=== PATIENT | male | born 1960 | race Caucasian/White ===

== ENCOUNTER 2025-05-25 17:13 | Inpatient (IN) | payer OTHER, SELFPAY ==
[2025-05-25] VITALS (11 sets, daily range): BP systolic 19–147; BP diastolic 66–89; BMI 25.4; BMI 25.1
--- NOTE | 2025-05-25 13:29 | ED.GENMED ---
History of Present Illness
General
Chief Complaint: Anal/Rectal Problem
Source: patient
Exam Limitations: none
Time Seen by Provider: 05/25/25 13:28
Nursing documentation reviewed up to this point in time: agreed with
History of Present Illness
History of Present Illness:
Note:
CHIEF COMPLAINT(S)
Foreign body insertion in the rectum.
HISTORY OF PRESENT ILLNESS
The patient is a 65-year-old male with a history of self-insertion of a razor blade into his rectum approximately one hour ago. He describes the blade as a flat, replaceable type, commonly found in box cutters. The patient attempted to retrieve it
without success. He reports experiencing pain localized to the rectal area. He denies any bleeding and confirms he inserted the blade himself. He has a history of a similar incident in 2021, where gastroenterology intervention was required for
removal via endoscopy.
The patient admits to current homelessness, staying at a half-way for two days. He denies current alcohol or substance use.
PAST MEDICAL AND SURGICAL HISTORY
The patient has a history of supraventricular tachycardia (SVT) treated with catheter ablation four years ago. Post-procedure, he was placed on Cardizem (diltiazem) and is not on any blood thinners. Additionally, he has undergone a temporary
diverting colostomy and subsequent reversal.
SOCIAL DETERMINANTS AFFECTING HEALTH
The patient is currently homeless and staying at a half-way. He discloses past occurrences of similar behavior related to foreign body insertion.
MEDICATIONS
The patient is currently taking Cardizem (diltiazem) for SVT management.
PHYSICAL EXAM
- General: Cooperative, alert, and oriented male.
- Head, Eyes, Ears, Nose, and Throat: Pupils equal and reactive to light.
- Cardiovascular: Regular rhythm, S1 and S2 heard without S3 or S4.
- Pulmonary: Clear bilateral lung sounds without distress.
- Abdomen: Soft, non-tender, non-distended.
- Rectal: No active bleeding observed; digital exam deferred due to the presence of a razor blade.
- Skin: Multiple self-inflicted cutting scars observed on upper extremities.
- Neurologic: Intact cranial nerve examination, no gross motor or sensory deficits.
PROBLEM LIST
Acute:
- Foreign body (razor blade) insertion in the rectum
- Rectal pain
Chronic:
- Supraventricular tachycardia (post-ablation)
PLAN
- The patient may require surgical or gastroenterological intervention for secure removal of the razor blade if deemed necessary.
- Continuation of Cardizem as indicated for SVT management.
- Address the patients homelessness and explore social media developer for housing assistance and psychological evaluation.
DIFFERENTIAL DIAGNOSIS
The Differential Diagnosis includes, in no particular order and is not limited to:
- Self-harm behavior
- Foreign body rectal insertion
- Complications from foreign body insertion such as infection or perforation
- Rectal trauma
- Hemorrhoids
- Colorectal mass
- Rectal abscess
- Diverticular disease
- Anorectal malformation
- Proctitis
CARE-UPDATE
05/25/25 - 19:45
Coordinated with gastroenterology and colorectal surgery regarding intervention. Patient was taken to the operating room and will be admitted by the hospitalist team. Psychiatry and crisis intervention teams are scheduled to evaluate the patient.
Disposition:
SUMMARY OF ENCOUNTER
The patient, a 65-year-old homeless male, presented to the emergency department with a self-insertion of a razor blade into his rectum about one hour prior. He reported pain but no bleeding. Historically, the patient had a similar incident in 2021,
necessitating removal via endoscopy. His medical history includes supraventricular tachycardia post-ablation with ongoing treatment with diltiazem. The management plan involved coordination with gastroenterology and colorectal surgery for
appropriate intervention to remove the foreign body.
DISPOSITION
Admit to the hospitalist.
ASSESSMENT
The patient presented with a rectal foreign body insertion and associated pain, self-harm behavior due to past incidences, and history of supraventricular tachycardia.
MANAGEMENT OF THE PATIENTS CARE WAS DISCUSSED WITH
Consultations were held with gastroenterology and colorectal surgery teams to address the intervention for razor blade removal. Psychiatry and crisis intervention teams are scheduled for patient evaluation post-procedure.
PLAN
The patient will require surgical or gastroenterological intervention for the secure removal of the razor blade. Continued management of supraventricular tachycardia includes the ongoing administration of diltiazem. Additionally, social media developer
will be engaged to provide housing assistance and psychological evaluation due to the patients homelessness and self-harm behavior.
MEDICAL DECISION MAKING
Number and Complexity of Problems Addressed: Chronic conditions affecting care include supraventricular tachycardia. Differential diagnoses considered were self-harm behavior, foreign body rectal insertion, and possible complications from insertion
such as infection, rectal trauma, or perforation.
Category 3:
Discussion of management with gastroenterology and colorectal surgery regarding intervention, as well as anticipated evaluation with psychiatry and crisis intervention teams.
Care significantly affected by Social Determinants of Health: The patients current homelessness situation and past occurrences indicate a pattern of behavior related to mental health needs and socio-economic challenges.
DIAGNOSIS
- Rectal foreign body (T18.5XXA)
- Self-harm behavior (Z91.5)
Past History
Past History
ED Past Medical History: CAD, HTN, Psychiatric (Bipolar disorder, PTSD, self mutilation, suicidal ideation), Other (Zenker's diverticula status post PEG reversal) and Other (SVT)
ED Past Surgical History: Other (21 bowel surgeries including PEG tube with reversal)
Social History
Tobacco: Smoker
Alcohol: None
Drug: None
Personal: Single
Living: homeless
Employment: Not employed
Family History
Family History: Other (Noncontributory)
Phy Exam
Physical Exam
Physical Exam:
.
Course
Orders/Labs/Results
Orders:
Orders
05/25/25 13:38
IV Insert/Care/Rem.- Treatment PRN
CR Abdomen - 1 View Urgent
Reason For Exam: inserted razor blade in rectum
05/25/25 13:50
Type+Screen Urgent
Complete Blood Count/With Diff Urgent
05/25/25 14:30
HYDROmorphone [Dilaudid] 0.5 mg IV NOW STA
Ondansetron Injectable [Zofran] 4 mg IV NOW STA
05/25/25 14:32
HYDROmorphone [Dilaudid] 0.5 mg IV NOW STA
Ondansetron Injectable [Zofran] 4 mg IV NOW STA
05/25/25 14:57
Comprehensive Metabolic Panel Urgent
05/25/25 Dinner
Regular
05/25/25 15:47
HYDROmorphone [Dilaudid] 0.5 mg IV NOW STA
05/25/25 16:13
Propofol [Diprivan] 40 ml .ROUTE .STK-MED
05/25/25 16:55
Admit/Transfer Patient As Directed
Co-Sign Provider:
Level of Care: Inpatient admission
Assign to:: Telemetry
Physician / Group: Hospitalist
Diagnosis: Foreign body insertion into rectum
Reason for Telemetry: Arrhythmia
Date to Stop Telemetry: 05/28/25
Time to Stop Telemetry: 11:00
Reason for Hospitalization: as above
Expected length of stay greater than two midnights?: Yes
ELOS- Estimated Length of Stay in days: 3
I certify the patient meets the requirements for IP care: Yes
05/25/25 16:56
Code Status As Directed
Resuscitation Status: Full Code
05/25/25 17:13
PSYCHIATRY CONSULT Routine
Consulting Provider: Michelle Garcia
Was physician already notified: Yes
05/25/25 17:43
Docusate W/Senna [Senokot-S] 1 tablet PO BIDPRN PRN
Polyethylene Glycol Powder [Miralax] 17 grams PO DAILYPRN PRN
05/25/25 17:43
1:1 Observation - Suicide/ Violent Behavior As Directed
Activity As Directed
Activity Level: As Tolerated
Vital Signs As Directed
Frequency: Per unit guidelines
DX Deep Vein Thrombosis Video Routine
05/25/25 18:00
Enoxaparin Sodium [Lovenox] 40 mg SC QPM
05/26/25 06:00
Basic Metabolic Panel IN AM
Complete Blood Count/With Diff IN AM
05/26/25 08:00
Diltiazem Extended Release [Cardizem Cd] 120 mg PO DAILY
05/28/25 11:00
DC Protocol for Telemetry ONCE
Abnormal Lab Results
05/25/25 05/25/25
13:50 14:57
RBC 4.02 L 10^6/uL
(4.70-6.10)
Hgb 12.7 L g/dL
(13.0-18.0)
Hct 36.8 L %
(39.0-52.0)
MCH 31.6 H pg
(27.0-31.0)
Chloride 109 H mmol/L
(98-107)
Total Protein 6.0 L g/dl
(6.3-8.2)
05/25/25 13:50
05/25/25 14:57
Vital Signs
Initial and Last Documented VS:
Initial Vital Signs
BP
105/74
05/25/25 13:27
Last Documented Vital Signs
Temp Pulse Resp BP Pulse Ox
97.9 F 74 16 121/81 100
05/25/25 19:00 05/25/25 19:00 05/25/25 19:00 05/25/25 19:00 05/25/25 19:00
*Radiology
Radiology exam reviewed: preliminary read by ED provider (Abdominal x-ray shows rectal foreign body)
*Pulse Oximetry
Patient hypoxic: no
*Critical Care Note
Total Time (30-74mins, 75-104mins- exclusive of procedures): Not Applicable
ED Attending Note
-
Portions of this chart may have been created with voice recognition software.� Occasional wrong word or��sound alike� substitutions may have occurred due to the inherent limitations of voice recognition software.
Discharge Plan
Departure
Patient Disposition: Admit
Date of Disposition: 05/25/25
Time of Disposition: 15:41
Admit to: Med/Surg
Presentation/result/management discussed w/ accepting MD/DO: Hospitalist
Patient with high blood pressure during this ER visit?: No
Condition: Good
Discharge Problem:
Foreign body anus/rectum, Suicidal ideation
Interventions
Interventions:
*Risk Screen - Suicide Last Done: 05/25/25 19:36
*General Assessment Last Done: 05/25/25 13:39
*Neglect/Abuse Screening Last Done: 05/25/25 13:39
*ED- Fall Risk Assessment Last Done: 05/25/25 13:39
*ED COVID-19 Vaccine History Last Done: 05/25/25 13:39
*Nursing Disposition Last Done: 05/25/25 16:34
TH-Robbvy-Wzlsheaioq Assessment Last Done: 05/25/25 13:39
ED-Skin Assessment Last Done: 05/25/25 13:39
Discharge Date and Time
Discharge Date/Time: 05/25/25 16:35
[2025-05-25 14:00] LABS: Hematocrit 36.8 % (39.0-52.0); Hemoglobin 12.7 g/dL (13.0-18.0); Mean Corp Hgb Conc. 34.5 g/dL (33.0-37.0); Mean Corpuscular Volume 91.5 fL (80.0-94.0); Nucleated Red Blood Cells % 0 % (-); Platelet Count 252 10^3/uL (130-400); Red Cell Dist. Width 14.3 % (11.5-14.5)
[2025-05-25] MEDS: DILAUDID 0.5 MG IV ×4 (14:34→18:27)
[2025-05-25] MEDS: ZOFRAN 4 MG IV (14:35)
[2025-05-25 15:24] LABS: ALT (SGPT) 10 U/L (0-50); AST (SGOT) 18 U/L (17-59); Albumin 3.5 g/dl (3.5-5.0); Alkaline Phosphatase 58 U/L (38-126); Blood Urea Nitrogen 9 mg/dl (9-20); Calcium 8.7 mg/dl (8.4-10.2); Carbon Dioxide 25 mmol/L (22-30); Chloride 109 mmol/L (98-107); Estimated Creatinine Clearance 107 ml/min; Glucose 82 mg/dl (70-99); Potassium 4.1 mmol/L (3.5-5.1); Sodium 140 mmol/L (135-145); Total Protein 6.0 g/dl (6.3-8.2); eGFR > 60.00
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
--- NOTE | 2025-05-25 16:54 | CON.MD ---
Consultation - Medical
-
Full consult to be dictated.
Assessment/Plan: 65-year-old male who earlier in the day placed a razor in his rectum. He has a history of self-harm. He has done this a number of times in the past and has been brought into the hospital for this. Patient every time it is
retrieved with a flex sig with retrieval with the Raptor grasper. He has no abdominal tenderness on exam. Denies any bleeding. I have recommended flexible sigmoidoscopy under anesthesia with retrieval of the rectal foreign body. Risk and
benefits were discussed and he agrees to proceed.
Thanks.
Consultation
-
Date/Time Consultation Requested: 05/25/25
Date/Time Consultation Performed: 05/25/25
Reason for Consultation: rectal foreign body
--- NOTE | 2025-05-25 17:17 | W.PN.UPDATE ---
Update Note
Progress Note Update
Flex sig with RFB (razor) retrieval complete. Will resume diet. Left message updating his friend, Fredis Andrews [phone] at his request.
[2025-05-25] MEDS: NICORETTE 2 MG PO (18:32)
[2025-05-25] MEDS: TORADOL 15 MG IV (20:09)
[2025-05-25] MEDS: LOVENOX 40 MG SC (20:10)
[2025-05-25] MEDS: BENADRYL 25 MG IV (20:10)
[2025-05-25] MEDS: NICORETTE 4 MG PO (21:20)
[2025-05-26] VITALS (7 sets, daily range): BP systolic 99–153; BP diastolic 64–85
[2025-05-26] MEDS: NICORETTE 4 MG PO ×5 (01:06→21:35)
[2025-05-26] MEDS: TORADOL 15 MG IV ×4 (01:54→22:13)
[2025-05-26] MEDS: BENADRYL 25 MG IV ×4 (01:54→21:35)
--- NOTE | 2025-05-26 07:34 | W.PN.HOSP.TC ---
Today's Communication/Plan
-
see a/p
Assessment / Plan
Assessment / Plan
Physical Exam
General: No acute distress, appears comfortable at this time
HEENT: Moist mucous membranes
Respiratory: Clear; No Wheezes, Rales or Rhonchi
Cardiac: S1/S2 and Regular Rhythm; No Murmur
GI: Soft, Non Distended, Normal Bowel Sounds and Tender (Tenderness on palpation LLQ)
Musculoskeletal: No Clubbing and No Edema
Skin: Warm and Dry
Neuro: AOx3 conversant coherent
Psych: Calm, endorses depression but denies current suicidal homicidal ideation
65M HTN SVT s/p Ablation hx pAfib Depression hx self harm here for foreign body insertion rectum (razor blade) since extracted by CRS vs flex sigmoidoscopy.
#Foreign body insertion into rectum
#Suicidal ideation
#Psychiatric disorder
-History of major depressive disorder
-Colorectal input appreciated, flex sig performed with subsequent removal razor blade
-1:1 observation for suicidal ideation / safety.
-Toradol PRN for pain.
-psych consult appreciated Home Lexapro and Zyprexa resumed
#hx afib
#SVT
-Patient Reports history of amiodarone Xarelto/Coumadin use in the past
-S/p ablation
-Continue Cardizem
#Benign hypertension
-Stable
-Continue Cardizem
#Tobacco use disorder
-Declines nicotine gum/Patch
CODE STATUS full code
DVT prophylax Lovenox
I spent a total of 50 minutes with the patient or on the floor. More than 50% of this time involved counseling and coordination of care.
Anticipated Discharge: Within 24 hours
Subjective/Interval History
-
Date of Service: May 26, 2025
no acute distress sitting up comfortably in bed. Reporting rectal pain with bowel movements. Tolerating diet.
Objective Data
-
Labs:
Laboratory Results
05/26/25
06:00
WBC Pending
Hgb Pending
Hct Pending
Plt Count Pending
Sodium Pending
Potassium Pending
Chloride Pending
Carbon Dioxide Pending
BUN Pending
Creatinine Pending
Glucose Pending
Calcium Pending
Vital Signs:
Vital Signs
Temp Pulse Resp BP Pulse Ox
97.7 F 71 18 123/80 98
05/26/25 03:00 05/26/25 03:00 05/26/25 03:00 05/26/25 03:00 05/26/25 03:00
I&O
05/25/25 05/26/25 05/27/25
06:59 06:59 06:59
Intake Total 480 / 480
Output Total 450 / 450
Balance 30 / 30
[2025-05-26] MEDS: CARDIZEM CD 120 MG PO (08:03)
[2025-05-26] MEDS: PROTONIX 40 MG PO (11:57)
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
[2025-05-26] MEDS: FLUSH (NSS) 2 FLUSH IV ×2 (12:23→18:40)
[2025-05-26] MEDS: DILAUDID 0.25 MG IV ×2 (12:28→18:40)
--- NOTE | 2025-05-26 14:06 | W.PN.UPDATE ---
Addendum entered and electronically signed by Vianey Mariee MD 05/26/25 14:15:
note qtc is okay
Original Note:
Update Note
Progress Note Update
spoke to [facility] who report a number of hosp over the past month plus for similar self injury both 302 and voluntary 03/24 to 03/27 at [facility] 04/06 [address] 04/[address] [facility] 04/14-04/16. i also spoke to his caseworker protective services ms nicolas who gave me
current meds including zyprexa 20 mg q day lexapro 20 mg q day . he was also taking doxepin which i will not prescribe given lethality in od. he was also taking atorvastatin for hld and apixaban . she was able to call the carroll mgr at the [facility]
where he resids [address] [place] [address] in [facility] where he can return. i called the mgr of that facility [phone] to let him know we would be seeking to return mr mcbride there. he has not yet returned my call. princess tom will try calling him as
well. at this point i see no point in keeping patient as prolonged hosp at will not improve his prognosis. he is currently seeking to go back to [facility] as per ms tom and he is denying self injuriousness although admittedly that can change. .
--- NOTE | 2025-05-26 14:52 | CM ---
Patient seen at [facility]'
IA completed
1:1
states he would like to return to [facility] on [address] [place] [address] and return to [facility]
stated to call director Fredis Walton to see if he can return as well as if they can provide transportation and left a message.
Spoke with Dr. Mariee who said he can return to [facility]
CM also called Rosa the case manger at [facility] [phone] & updated - she request if we could email her discharge summary/instructions to her upon discharge - Rosa's email: [email or web address]
PLAN: [facility]
await call back from Fredis Walton regarding ? transportation
--- NOTE | 2025-05-26 15:39 | PTCARENOTE ---
patient continued on 1:1 observation for suicide attempt. patient with no suicidal ideation. cooperative with staff, though refused am blood work. at 12:[address] Ordonez via tiger text for patient c/o severe pain in rectal area after having 2
large formed brown BM's in toilet and requested analgesia since Toradol is not due. Dr. Ordonez wanted to try Ultram but patient reports vomiting with it and allergy list updated. so Dr. Ordonez ordered Dilaudid 0.25 mgs IV x1 dose. medicated
administered (see MAR) with some relief. will continue to monitor.
--- NOTE | 2025-05-26 15:45 | W.PN.UPDATE ---
Update Note
Progress Note Update
spoke to patient's out patient psychiatrist dr martina bird who works with the act team. she was well acquainted with mr mcbride's history. she is in agreement w sc tomorrow and the [facility] team will see him on saturday am at 1030 they will report to
her. she may actually come by to see him if her schedule allows. we reviewed patient meds as ordered by me today which is the list that his cm gave me. she thought the zyprexa had been decreased from 20 but said she saw no harm in continuing 20 mg
for the time being.
[2025-05-26] MEDS: LIPITOR 20 MG PO (18:03)
[2025-05-26] MEDS: LOVENOX 40 MG SC (18:03)
[2025-05-26] MEDS: ZYPREXA 20 MG PO (21:35)
[2025-05-27] MEDS: ZOFRAN 4 MG IV (02:30)
[2025-05-27] MEDS: BENADRYL 25 MG IV ×2 (02:30→08:51)
[2025-05-27 03:01] VITALS: BP 109/72
--- NOTE | 2025-05-27 07:29 | W.PN.HOSP.TC ---
Today's Communication/Plan
-
discharge
Assessment / Plan
Assessment / Plan
Physical Exam
General: No acute distress, appears comfortable at this time
HEENT: Moist mucous membranes
Respiratory: Clear; No Wheezes, Rales or Rhonchi
Cardiac: S1/S2 and Regular Rhythm; No Murmur
GI: Soft, Non Distended, Normal Bowel Sounds and Tender (Tenderness on palpation LLQ)
Musculoskeletal: No Clubbing and No Edema
Skin: Warm and Dry
Neuro: AOx3 conversant coherent
Psych: Calm, endorses depression but denies current suicidal homicidal ideation
65M HTN SVT s/p Ablation hx pAfib Depression hx self harm here for foreign body insertion rectum (razor blade) since extracted by CR[facility] vs flex sigmoidoscopy.
#Foreign body insertion into rectum
#Suicidal ideation
#Psychiatric disorder
-History of major depressive disorder
-Colorectal input appreciated, flex sig performed with subsequent removal razor blade
-1:1 observation for suicidal ideation / safety.
-Toradol PRN for pain.
-psych consult appreciated Home Lexapro and Zyprexa resumed
#hx afib
#SVT
-Patient Reports history of amiodarone Xarelto/Coumadin use in the past
-S/p ablation
-Continue Cardizem
#Benign hypertension
-Stable
-Continue Cardizem
#Tobacco use disorder
-Declines nicotine gum/Patch
CODE STATUS full code
DVT prophylax Lovenox
Medically stable for discharge back to sn[facility] with outpt follow up recommendations.
Total Time Preparing Discharge ___40____ minutes including examination of the patient, summary of the hospital stay, instructions for continuing care to all relevant caregivers; and preparation of discharge records, prescriptions, and referral
forms if necessary.
Anticipated Discharge: Today
Subjective/Interval History
-
Date of Service: May 27, 2025
Seen and examined at bedside in no acute distress resting comfortably in bed. Overall reports feeling well. Looking forward to return to snf.
Objective Data
-
Vital Signs:
Vital Signs
Temp Pulse Resp BP Pulse Ox
97.7 F 79 14 109/72 97
05/27/25 03:01 05/27/25 03:01 05/27/25 03:01 05/27/25 03:01 05/27/25 03:01
I&O
05/26/25 05/27/25 05/28/25
06:59 06:59 06:59
Intake Total 2460 / 2460
Output Total 450 / 450
Balance 2009
[2025-05-27 07:40] VITALS: BP 107/70
[2025-05-27] MEDS: PROTONIX 40 MG PO (08:39)
[2025-05-27] MEDS: CARDIZEM CD 120 MG PO (08:40)
[2025-05-27] MEDS: LEXAPRO 20 MG PO (08:40)
[2025-05-27] MEDS: TORADOL 15 MG IV (08:50)
[2025-05-27] MEDS: NICORETTE 4 MG PO ×2 (08:51→14:01)
--- NOTE | 2025-05-27 09:06 | CM ---
Addendum entered by Mai Fuentes 05/27/25 14:42:
[employer] Probation Officer is Michael Parker; License Plate [id number].
Addendum entered by Mai Fuentes 05/27/25 13:37:
No viable safe options for transportation home. GIFTY called the halfway again and was told that they only have 1 car and that is being used for another patient.
LOCO requested for 2:30 fern picker and awaiting fern picker acceptance at the main lobby with details regarding the [employer] care that will provide the ride.
Original Note:
Carter is cleared for discharge back to his halfway today. GIFTY called the facility to discuss transportation home, however everyone is in a team meeting and unavailable at this time.
Await return call to coordinate transportation.
--- NOTE | 2025-05-27 11:21 | W.PN.UPDATE ---
Update Note
Progress Note Update
patient seen chart reviewed. patient is happy with the plan to dc today back to the [facility] where he had been residing. although the director did not return my call his protective services case worker tells me she was in touch with him and patient can return.
touched base with dr jake rodriguez. neither of us feel apixaban is appropriate given the situation. did not change patient's psychotropic medication. hopefully dc to [facility] will go smoothly later today.
--- NOTE | 2025-05-27 12:50 | W.DCSUMMARY ---
Discharge Summary
Discharge Data
Date of Admission: 05/25/25
Date of Discharge: 05/27/25
-
Pending Results: No
Hospital Course
65M HTN SVT s/p Ablation hx pAfib Depression hx self harm here for foreign body insertion rectum (razor blade) since extracted by CRS vs flex sigmoidoscopy. Foreign body insertion into rectum, Suicidal ideation, History of major depressive
disorder. Colorectal input appreciated, flex sig performed with subsequent removal razor blade
1:1 observation for suicidal ideation / safety. Toradol PRN for pain. Psych consult appreciated Home Lexapro and Zyprexa resumed. Medically stable, patient was discharged back to his [facility] with outpatient follow up recommendations.
Discharge Plan
-
Patient Disposition: Home (Routine Discharge)
Discharge Diagnosis/Procedures: Foreign body insertion into rectum- razor blade removed via flex sigmoidoscopy 05/25/25
Self harm
Major Depressive Disorder
Paroxysmal Atrial Fibrillation
Hypertension
Condition: Fair
Diet: Regular
Activity: As tolerated
Driving Restrictions: As prior to admission
Bathing Restrictions: None
Activity Restrictions/Additional Instructions:
Follow up with primary care provider in 1 week of discharge.
Ibuprofen prescribed as needed for pain. Protonix prescribed for GI prophylaxis while taking ibuprofen.
As per psych, recommend discontinuing/avoiding doxepin given associate risk lethality with overdose.
Eliquis discontinued due to concern high risk bleeding with history self harm- risks seems to outweigh benefits at this time. Follow up with primary care provider before considering to resume.
Please take medications as prescribed/recommended and follow up with primary care provider and/or other healthcare provider involved in your care for refills and/or further adjustment to your medication regimen as necessary.
Referrals:
UNKNOWN - PT NOT,INTERVIEWE [Family Provider]
Prescriptions:
New
pantoprazole 40 mg Tablet,Delayed Release (Dr/Ec)
40 mg PO DAILY Qty: 7 0RF
ibuprofen 400 mg tablet
400 mg PO Q6H PRN (Reason: Pain) Qty: 30 0RF
Continued
diltiazem HCl [Cartia XT] 120 MG capsule,extended release 24hr
120 mg PO DAILY
escitalopram oxalate [Lexapro] 20 mg Tablet
20 mg PO DAILY
atorvastatin 20 mg Tablet
20 mg PO QPM
Changed
olanzapine [Zyprexa] 20 mg Tablet
20 mg PO HS Qty: 0 0RF
Discontinued
Eliquis 5 mg Tablet
5 mg PO BID
Discharge Orders:
Discharge Patient (As Directed); Ordered 05/27/25
Ordered By: Arian Ordonez
Discharge Date and Time
Discharge Date/Time: 05/27/25 14:27
Print Language: GEORGIAN
[2025-05-27] MEDS: DILAUDID 0.25 MG IV (12:55)
[2025-05-27] MEDS: FLUSH (NSS) 2 FLUSH IV (12:56)
== END 2025-05-27 14:27 | disposition home or self-care (01) | DRG 394 ==
LOC: 3 WEST ACU 17:13
PROVIDERS: ADMITTING PHYSICIAN Hospitalist; ATTENDING PHYSICIAN Internal Medicine; CONSULT PHYSICIAN Surgery; EMERGENCY PHYSICIAN Emergency Medicine; OTHER PHYSICIAN Psychiatry & Neurology Psychiatry
PROC: 0DCP8ZZ Extirpation of Matter from Rectum, Via Natural or Artificial Opening Endoscopic (ICD-10-PCS; 2025-05-25)
DX: T18.5XXA Foreign body in anus and rectum, initial encounter (principal); I47.10 Supraventricular tachycardia, unspecified; Z59.01 Sheltered homelessness; R45.851 Suicidal ideations; W44.H0XA Other sharp object unspecified, entering into or through a natural orifice, initial encounter; K62.89 Other specified diseases of anus and rectum; R45.88 Nonsuicidal self-harm; Y93.9 Activity, unspecified; Y92.9 Unspecified place or not applicable; F31.9 Bipolar disorder, unspecified; I10 Essential (primary) hypertension; I25.10 Atherosclerotic heart disease of native coronary artery without angina pectoris; K22.5 Diverticulum of esophagus, acquired; F43.10 Post-traumatic stress disorder, unspecified; I48.0 Paroxysmal atrial fibrillation; F17.210 Nicotine dependence, cigarettes, uncomplicated; E78.5 Hyperlipidemia, unspecified; F60.3 Borderline personality disorder; E05.00 Thyrotoxicosis with diffuse goiter without thyrotoxic crisis or storm; K21.9 Gastro-esophageal reflux disease without esophagitis; K57.30 Diverticulosis of large intestine without perforation or abscess without bleeding; Z56.0 Unemployment, unspecified; Z91.52 Personal history of nonsuicidal self-harm; Z62.810 Personal history of physical and sexual abuse in childhood; Z86.718 Personal history of other venous thrombosis and embolism; Z91.51 Personal history of suicidal behavior; Z88.6 Allergy status to analgesic agent; Z88.5 Allergy status to narcotic agent; Z88.8 Allergy status to other drugs, medicaments and biological substances; Z91.410 Personal history of adult physical and sexual abuse; Z63.8 Other specified problems related to primary support group; Z63.79 Other stressful life events affecting family and household
CPT/HCPCS: 74018; 80053; 85025; 86850; 86900; 86901; 93005; 96374; 96375; 96376; 99285

== ENCOUNTER 2025-07-07 07:23 | Inpatient (IN) | payer OTHER, SELFPAY ==
[2025-07-06 20:31] VITALS: BP 114/76
[2025-07-06 20:43] VITALS: BMI 25.2
--- NOTE | 2025-07-06 21:39 | ED.GENMED ---
History of Present Illness
General
Chief Complaint: Foreign Body Ingestion
Source: patient
Exam Limitations: none
Time Seen by Provider: 07/06/25 21:12
Nursing documentation reviewed up to this point in time: agreed with
History of Present Illness
History of Present Illness:
Note:
CHIEF COMPLAINT(S)
Insertion of glass pieces into the rectum.
HISTORY OF PRESENT ILLNESS
The patient is a 65-year-old male presenting with self-insertion of two pieces of glass into her rectum. This is known to be a coping mechanism for stress, as she had a previous incident in May involving insertion of a razor blade into the
rectum, which required removal via surgery. The patient admits to current pain stemming from this injury. She traveled from [place] via [facility] to seek medical attention. The plan involves discussing the case with a colorectal surgeon for
intervention.
SOCIAL DETERMINANTS AFFECTING HEALTH
The patient engaged in self-harm practices and reported experiencing stress. he stated living arrangements have changed recently, indicating a move from [place]. There is no use of alcohol, but he admits to smoking.
REVIEW OF SYSTEMS
- Gastrointestinal: Self-insertion of foreign bodies (glass) into the rectum, experiencing pain.
- Psychiatric: History of self-harm as a coping mechanism for stress.
PHYSICAL EXAM
General: Alert, no acute distress.
Skin: Warm, dry.
Head: Normocephalic, atraumatic.
Neck: Supple, trachea midline.
Eye Ears, nose, mouth and throat: Oral mucosa moist.
Cardiovascular: Normal peripheral perfusion, No edema.
Respiratory: Respirations are non-labored.
Gastrointestinal: Self-insertion of foreign bodies into rectum.
Back: Normal range of motion, Normal alignment.
Musculoskeletal: Normal range of motion, normal strength.
Neurological: Alert and oriented to person, place, time, and situation, No focal neurological deficit observed.
Psychiatric: Cooperative, appropriate mood & affect.
PLAN
Consult with a colorectal surgeon for possible removal of glass from the rectum.
Counseling or psychiatric evaluation may be necessary to address the underlying stress and mental health issues associated with self-harm behaviors.
DIFFERENTIAL DIAGNOSIS
The Differential Diagnosis includes, in no particular order and is not limited to:
- Rectal foreign body
- Rectal trauma or perforation
- Self-injurious behavior
- Munchausen syndrome
- Obsessive-compulsive disorder with self-mutilation
- Acute stress reaction
- Chronic pain disorder
- Anorectal abscess (secondary to foreign body)
- Depression with self-harm tendencies
- Personality disorder affecting impulse control
CARE-UPDATE
07/06/25 - 21:[address] Molina, a colorectal surgeon, who has agreed to evaluate the patient further. The patient will be admitted under the care of a hospitalist for observation and potential intervention. Rectal exam findings confirm the presence of
glass shards visible on x-ray with no active bleeding observed. Digital rectal examination deferred to prevent risk of further injury.
Disposition:
SUMMARY OF ENCOUNTER
The patient, a 65-year-old male, presented to the emergency department after self-inserting two pieces of glass into her rectum. This was a recurrent behavior as a coping mechanism for stress, with a prior incident involving a razor blade requiring
surgical intervention. Upon examination, the patient experienced pain but no active bleeding or perforation was noted. Radiological confirmation of the foreign objects presence was made via x-ray.
DISPOSITION
Admit under hospitalist care.
MANAGEMENT OF THE PATIENTS CARE WAS DISCUSSED WITH
Consultation with a colorectal surgeon, Dr. Molina, confirmed. The patient is likely to go to the operating room for removal of the glass.
PLAN
The patient will be observed and admitted under the care of a hospitalist. A colorectal surgeon will evaluate her for potential surgical intervention to safely remove the glass pieces. Concurrently, addressing her underlying stress and mental health
issues with a possible psychiatric evaluation or counseling is recommended.
INDEPENDENT REVIEW OF LABS AND INTERPRETATION OF TESTS
My independent interpretation of the x-ray confirms the presence of glass shards in the rectum without evidence of perforation or active bleeding.
MEDICAL DECISION MAKING
- Complexity of Data Reviewed: Chronic conditions affecting care include self-injurious behavior for stress management, and rectal foreign body. Differential diagnosis considerations included rectal trauma or perforation, Munchausen syndrome,
obsessive-compulsive disorder with self-mutilation, acute stress reaction, and personality disorder affecting impulse control.
- Data:
- Category 1: X-ray imaging reviewed and confirmed the presence of glass without perforation.
- Category 3: Discussed management with colorectal surgeon for operative evaluation and intervention.
DIAGNOSIS
1. T18.5: Foreign body in rectum
2. 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
3. R45.89: Self-harm behavior
Past History
Past History
ED Past Medical History: CAD, HTN, Psychiatric (Bipolar disorder, PTSD, self mutilation, suicidal ideation), Other (Zenker's diverticula status post PEG reversal) and Other (SVT)
ED Past Surgical History: Other (21 bowel surgeries including PEG tube with reversal)
Social History
Tobacco: Smoker
Alcohol: None
Drug: None
Personal: Single
Living: homeless
Employment: Not employed
Family History
Family History: Other (Noncontributory)
Phy Exam
Physical Exam
Physical Exam:
.
Course
Orders/Labs/Results
Orders:
Orders
07/06/25 20:35
1:1 Observation - Suicide/ Violent Behavior As Directed
07/06/25 21:13
IV Insert/Care/Rem.- Treatment PRN
Abdomen Xray - 1 View [CR Abdomen - 1 View] Urgent
Comment:
Reason For Exam: glass inserted into rectum
07/06/25 21:52
ColoRectal Surgery Consult Urgent
Consulting Provider: Chad Molina
Was physician already notified: Yes
Reason for consult: rectal foreign body
07/06/25 21:54
HYDROmorphone [Dilaudid] 1 mg IV NOW STA
07/06/25 21:55
CR Chest Portable - 1 View Urgent
Comment: upright to eval for free air
Reason For Exam: foreign body rectum
Reason Study Needs to be Portable: Unable to Transport
07/06/25 22:39
Admit/Transfer Patient As Directed
Co-Sign Provider:
Level of Care: Observation services
Assign to:: Medical/Surgical
Physician / Group: Dhara
Diagnosis: Rectal foreign body
07/06/25 22:40
PRN Pain Medication Management As Directed
May give lesser potent ordered pain med per pt: Yes
preference::
Protocol:: Medication orders for pain may be administered in a
manner that supports deferring to patient preference
when the pt is:
- Requesting an ordered lesser potent pain medication.
Least to most potent pain medications are defined
as: acetaminophen < NSAID < tramadol < opioids
(morphine, oxycodone, hydromorphone).
- Requesting a lesser dose of the same medication IF
ORDERED.
- Requesting a less intrusive route of administration
if both routes are prescribed by the provider (PO <
IV).
07/06/25 22:41
Code Status As Directed
Resuscitation Status: Full Code
07/06/25 22:48
Type+Screen Urgent
Basic Metabolic Panel Urgent
Complete Blood Count/With Diff Urgent
Abnormal Lab Results
07/06/25
22:48
RBC 3.57 L 10^6/uL
(4.70-6.10)
Hgb 11.6 L g/dL
(13.0-18.0)
Hct 32.8 L %
(39.0-52.0)
MCH 32.5 H pg
(27.0-31.0)
Absolute Monos (auto) 1.0 H 10^3/uL
(0.1-0.6)
Monocytes % 13.4 H %
(1.7-9.3)
Chloride 111 H mmol/L
(98-107)
Glucose 109 H mg/dl
(70-99)
07/06/25 22:48
07/06/25 22:48
Vital Signs
Initial and Last Documented VS:
Initial Vital Signs
Temp Pulse Resp BP Pulse Ox
98.1 F 80 20 114/76 100
07/06/25 20:31 07/06/25 20:31 07/06/25 20:31 07/06/25 20:31 07/06/25 20:31
Last Documented Vital Signs
Temp Pulse Resp BP Pulse Ox
98.1 F 85 20 114/89 97
07/06/25 20:31 07/06/25 23:11 07/06/25 23:11 07/06/25 23:01 07/06/25 23:12
*Pulse Oximetry
SaO2: 100
Oxygen Mode of Delivery: Room air
Patient hypoxic: no
*Critical Care Note
Total Time (30-74mins, 75-104mins- exclusive of procedures): 33
comment:
Critical care statement: A total of 33 minutes of critical care time was provided for this patient. This includes management of unstable vital signs, evaluation of the patient at bedside, reviewing the patient's pertinent medical records, discussion
with consultants, review of old EKGs and review of pertinent medical records. This time with separate from time utilized to perform the aforementioned documented procedures
ED Attending Note
-
Portions of this chart may have been created with voice recognition software.� Occasional wrong word or��sound alike� substitutions may have occurred due to the inherent limitations of voice recognition software.
Discharge Plan
Departure
Patient Disposition: OR
Date of Disposition: 07/06/25
Time of Disposition: 21:52
Admit to: OR
Presentation/result/management discussed w/ accepting MD/DO: Hospitalist
Patient with high blood pressure during this ER visit?: No
Condition: Good
Discharge Problem:
Foreign body anus/rectum
Interventions
Interventions:
*Risk Screen - Suicide Last Done: 07/06/25 20:31
*General Assessment Last Done: 07/06/25 20:43
*Neglect/Abuse Screening Last Done: 07/06/25 20:31
*ED- Fall Risk Assessment Last Done: 07/06/25 20:43
*ED COVID-19 Vaccine History Last Done: 07/06/25 20:43
--- NOTE | 2025-07-06 22:24 | HPS.HSE ---
Family Physician
-
Family Physician: NOT KNOW UNKNOWN - PT DOES
Chief Complaint
-
Foreign body insertion in the rectum
History of Present Illness
This is a 65-year-old with past medical history of CAD, hypertension, SVT status post ablation, history of DVT on anticoagulation, major depressive disorder, history of suicidal attempts in the past multiple times will was last admitted in May
for insertion of her razor blade into the rectum now comes in with insertion of a glass shattered found on the streets into the rectum and complains of severe rectal pain. No current bleeding.
In the ED was afebrile, blood pressure was 114/76 with a pulse rate of 80 and satting 100% on room air.
The x-ray of the abdomen showing 5 cm in size triangular radiopaque foreign body projecting over the lower pelvis in the region of the rectum, consistent with the provided history of glass inserted into the rectum.
No appreciable intraperitoneal free air. Nonobstructive bowel gas pattern.
Medical History
Past Medical History
Past Medical History: Reports Other (CAD, hypertension, multiple suicidal attempts, borderline personality, SVT s/p ablation)
Past Surgical History: Reports Other (Bowel resection, PEG tube and reversal, ventral hernia repair,)
Social History
Tobacco: Smoker (1 pack/day)
Alcohol: None
Drug: None
Living: Homeless
Family History
Family History: Not pertinent
Allergies / Home Medications
Allergies reflects when Allergies were last updated in [employer].
Home Medications with original date entered in [employer]
Allergy/Medication List:
Allergies
Allergy/AdvReac Type Severity Reaction Status Date / Time
acetaminophen (From Tylenol) Allergy throat Verified 10/25/19 15:37
swelling
buspirone (From BuSpar) Allergy heart Verified 10/25/19 15:37
irregularity
morphine Allergy Itching Verified 10/25/19 15:37
Home Medications
diltiazem HCl 120 mg capsule,extended release 24 hr (Cartia XT) 120 mg PO DAILY Blood pressure 05/06/18
Review of Systems
-
Constitutional: Reports No Symptoms
EENT: Reports No Symptoms
Respiratory: Reports No Symptoms
Cardiac: Reports No Symptoms
Abdomen/GI: Reports Other (Rectal pain)
: Reports No Symptoms
Musculoskeletal: Reports No Symptoms
Skin: Reports No Symptoms
Neurological: Reports No Symptoms
Endocrine: Reports No Symptoms
Hematologic/Lymphatic: Reports No Symptoms
Psych: Reports No Symptoms
Physical Exam
Vital Signs
Vital Signs
Temp Pulse Resp BP Pulse Ox
98.1 F 80 20 114/76 100
07/06/25 20:31 07/06/25 20:31 07/06/25 20:31 07/06/25 20:31 07/06/25 21:40
Physical Exam
General: Comfortable and Pain
HEENT: Moist mucous membranes
Respiratory: Clear; No Wheezes, Rales or Rhonchi
Cardiac: S1/S2 and Regular Rhythm; No Murmur
GI: Soft, Non Distended, Normal Bowel Sounds and Tender (Tenderness on palpation LLQ)
Musculoskeletal: No Clubbing and No Edema
Skin: Warm and Dry
Neuro: Awake, Alert, Oriented and AO x 3
Psych: Anxious, Depressed and Suicidal
Data Reviewed
-
Diagnostic Radiology: Report Reviewed by me
Lab Data: Labs Reviewed by me
Old Records: Reviewed
Impression/Plan
-
IMPRESSION:
This a 65-year-old past medical history significant for borderline personality disorder ptsd unspecified depression impulse control disorder, suicidal attempts, history of recurrent insertion of foreign body in rectum since at least 2021 being
followed by outpatient psychiatry who presents again to the emergency department with insertion of a glass she has been into the rectum. He is afebrile hemodynamically stable without evidence of intra-abdominal perforation or on imaging. He is not
having any bleeding. He denies any suicidal ideation. He reports that he does days and whenever he is feeling stressed.
PLAN:
Rectal foreign body insertion -no current perforation or bleeding
-Admit to MedSurg
-N.p.o. for now
-Pain control
-Colorectal consulted, possible flex sig this evening
-No suicidal ideation continue patient's olanzapine and Lexapro
-One-to-one
-Psych consult
DVT prophylaxis�SCDs for now
CODE STATUS�full code
[2025-07-06] MEDS: DILAUDID 1 MG IV (22:52)
[2025-07-06 22:55] VITALS: BP 103/78
[2025-07-06 22:59] LABS: Hematocrit 32.8 % (39.0-52.0); Hemoglobin 11.6 g/dL (13.0-18.0); Mean Corp Hgb Conc. 35.4 g/dL (33.0-37.0); Mean Corpuscular Volume 91.9 fL (80.0-94.0); Nucleated Red Blood Cells % 0 % (-); Platelet Count 202 10^3/uL (130-400); Red Cell Dist. Width 13.4 % (11.5-14.5)
[2025-07-06 23:01] VITALS: BP 114/89
[2025-07-06 23:13] LABS: Blood Urea Nitrogen 16 mg/dl (9-20); Calcium 9.3 mg/dl (8.4-10.2); Carbon Dioxide 24 mmol/L (22-30); Chloride 111 mmol/L (98-107); Estimated Creatinine Clearance 93 ml/min; Glucose 109 mg/dl (70-99); Potassium 4.2 mmol/L (3.5-5.1); Sodium 142 mmol/L (135-145); eGFR > 60.00
--- NOTE | 2025-07-06 23:30 | CON.CRS ---
Medical History
-
History of Present Illness:
65-year-old male with PMH of CAD, HTN, Zenker's diverticulum s/p repair complicated by esophageal perforation requiring cervical exposure and washout with PEG tube, which was eventually removed, ventral hernia repaired x 2 (first was 15 years ago
associated with incarcerated bowel, second was 2 to 3 years ago in the epigastric region) as well as extensive history of self-harm by placing sharp objects up the rectum requiring multiple endoscopic removals over many years. Per notes, he has
been diagnosed with bipolar with psychosis, anxiety and depression. Last foreign body removal was done on 05/25 by my partner, Dr. Young. He removed a sharp metal object via sigmoidoscopy. No extensive damage was identified. He was discharged 2
days later. He stated that he is living in a skilled nursing and a new resident started living with them. The new resident is hostile and refuses to take his medications, causing the whole household to be stressed. The patient was walking on the
sidewalk when he saw 2 sharp glass shards. The first he described as 5 cm and 1 to 2 cm wide with a sharp tip. The second he described as more square/circular, perhaps 2 x 2 cm. He inserted them into his anus, hoping to cause bleeding. He
admitted that he was hoping the shards would lacerate an artery, which would hopefully kill him. He then decided he wanted to remove them, but could no longer feel them at the tip of his finger. He therefore presented to the ED. He is complaining
of severe rectal pain. He denies any chest pain, shortness of breath or abdominal pain. He had some bleeding after he placed the objects. In the ED, and AXR confirmed a radiopaque foreign body in the distal rectum, consistent with the glass shard
that he described. An upright CXR was done without evidence of free air.
Past Medical History
Past Medical History: Other (As above)
Past Surgical History: Other (Repair of Zenker's complicated by esophageal perforation requiring cervical washout with PEG tube placement s/p removal, umbilical hernia repair s/p incarceration 20 years ago with possible bowel resection, epigastric
hernia repair 2 to 3 years ago)
Social History
Tobacco: Smoker
Alcohol: None
Drug: None
Personal: Single
Living: Other (Group)
Employment: Public Assistance
Family History
Family History: Reviewed & Not Pertinent
Allergies / Home Medications
Allergy/AdvReac Type Severity Reaction Status Date / Time
acetaminophen (From Tylenol) Allergy throat Verified 07/06/25 20:35
swelling
buspirone (From BuSpar) Allergy heart Verified 07/06/25 20:35
irregularity
morphine Allergy Itching Verified 07/06/25 20:35
tramadol Allergy Vomiting Verified 07/06/25 20:35
�Medication �Instructions �Recorded �Confirmed �Type
diltiazem HCl 120 mg 120 mg PO DAILY Blood pressure 05/06/18 05/25/25 History
capsule,extended release 24 hr
(Cartia XT)
atorvastatin 20 mg tablet 20 mg PO QPM 05/27/25 05/27/25 History
escitalopram oxalate 20 mg tablet 20 mg PO DAILY 05/27/25 05/27/25 History
(Lexapro)
ibuprofen 400 mg tablet 400 mg PO Q6H PRN Pain #30 tabs 05/27/25 Rx
olanzapine 20 mg tablet (Zyprexa) 20 mg PO HS #0 tabs 05/27/25 05/27/25 Rx
pantoprazole 40 mg tablet,delayed 40 mg PO DAILY #7 tabs 05/27/25 Rx
release
Review of Systems
-
A 10 point review of systems was completed, and was negative except as per HPI.
Physical Exam
Vital Signs
Temp 98.1 F 07/06/25 20:31
Pulse 85 07/06/25 23:11
Resp Rate 20 07/06/25 23:11
Blood pressure 114/89 07/06/25 23:01
SaO2 97 07/06/25 23:12
09/07/06/25 07/07/25
06:59 06:59 06:59
Actual Weight 77.2 kg
Body Mass Index (BMI) 25.2
Lab Results / Allergies
07/06/25 22:48
07/06/25 22:48
WBC 7.2 10^3/uL (4.8-10.8) 07/06/25 22:48
Hgb 11.6 g/dL (13.0-18.0) L 07/06/25 22:48
Hct 32.8 % (39.0-52.0) L 07/06/25 22:48
Plt Count 202 10^3/uL (130-400) 07/06/25 22:48
Abs Immat Gran (auto) 0.0 10^3/uL (0-0.05) 07/06/25 22:48
Neutrophils % 59.7 % (42.2-75.2) 07/06/25 22:48
Allergy/AdvReac Type Severity Reaction Status Date / Time
acetaminophen (From Tylenol) Allergy throat Verified 07/06/25 20:35
swelling
buspirone (From BuSpar) Allergy heart Verified 07/06/25 20:35
irregularity
morphine Allergy Itching Verified 07/06/25 20:35
tramadol Allergy Vomiting Verified 07/06/25 20:35
Physical Exam
General: Well Developed, Well Nourished and No Apparent Distress
HEENT: Normocephalic and Atraumatic
Respiratory: Non Labored Respirations
Cardiac: S1/S2
GI: Soft, Non Tender (No rebound or guarding; well-healed midline surgical scar in the epigastric region and periumbilical region) and Non Distended
Rectal: Other (Deferred)
Skin: Warm and Dry
Neuro: AO x 3
Data Reviewed
-
Radiology: Image Personally Visualized and interpreted, Discussed with Physician (ED doc and hospitalist) and Discussed with Patient
Labs: Labs Reviewed by me
Assessment / Plan
-
65-year-old male with PMH of CAD, HTN, Zenker's diverticulum s/p repair complicated by esophageal perforation requiring cervical exposure and washout with PEG tube, which was eventually removed, ventral hernia repaired x 2 (first was 15 years ago
associated with incarcerated bowel, second was 2 to 3 years ago in the epigastric region) as well as extensive history of self-harm by placing sharp objects up the rectum requiring multiple endoscopic removals over many years. Per notes, he has
been diagnosed with bipolar with psychosis, anxiety and depression. Last foreign body removal was done on 05/25 by my partner, Dr. Young. He removed a sharp metal object via sigmoidoscopy. About 5 to 6 hours ago, he again inserted to glass shards
into the rectum, associated with bleeding and severe pain, unable to retrieve. His hope was possibly to commit suicide. In the ED, and AXR confirmed a radiopaque foreign body in the distal rectum, consistent with the glass shard that he described.
An upright CXR was done without evidence of free air.
AFVSS
WBC 7.2, Hb 11.6, CR 0.8
�Per rectal insertion of 2 glass shards; XR confirming at least 1 glass shard in the distal rectum
�Due to severe rectal pain, recommend urgent flexible sigmoidoscopy with attempt at foreign body retrieval in the OR; will need endoscopic evaluation for possible rectal injury and ruling out perforation; I explained that the procedure in depth
with the patient, including the risks benefits and alternatives; if I am unable to retrieve the foreign bodies endoscopically, I may have to convert to exploration via laparoscopy versus laparotomy; I explained that if there is extensive injury to
the rectum, he may require diverting ostomy; I explained the risks, including but not limited to, bleeding, infection, perforation, missed lesion, injury to nearby structures, incisional hernia, adhesive disease, and unexpected events; the patient
understood well and agreed to the surgery
� Keep n.p.o. with IVF
� Pain control
� Hold on DVT PPx for now, will likely start postoperatively
� Hold on antibiotics for now
� Admit to hospitalist with psych consult
[2025-07-07] VITALS (8 sets, daily range): BP systolic 98–120; BP diastolic 64–77; BMI 25.6
[2025-07-07] MEDS: ROBITUSSIN DM 10 ML PO ×2 (02:41→20:08)
[2025-07-07] MEDS: DILAUDID 0.5 MG IV ×5 (02:42→20:53)
[2025-07-07 06:48] LABS: Hematocrit 33.1 % (39.0-52.0); Hemoglobin 11.4 g/dL (13.0-18.0); Mean Corp Hgb Conc. 34.4 g/dL (33.0-37.0); Mean Corpuscular Volume 93.8 fL (80.0-94.0); Platelet Count 206 10^3/uL (130-400); Red Cell Dist. Width 13.7 % (11.5-14.5)
[2025-07-07 07:18] LABS: Blood Urea Nitrogen 16 mg/dl (9-20); Calcium 9.0 mg/dl (8.4-10.2); Carbon Dioxide 24 mmol/L (22-30); Chloride 111 mmol/L (98-107); Estimated Creatinine Clearance 93 ml/min; Glucose 105 mg/dl (70-99); Potassium 4.3 mmol/L (3.5-5.1); Sodium 141 mmol/L (135-145); eGFR > 60.00
--- NOTE | 2025-07-07 07:30 | OR.RPT ---
Operative Report
Operative Report
DATE OF OPERATION: 07/07/2025
SURGEON: Chad Molina MD
PREOPERATIVE DIAGNOSIS: Rectal foreign body
POSTOPERATIVE DIAGNOSIS: Rectal foreign body
OPERATION: Flexible sigmoidoscopy
ASSISTANTS:
1. None
ANESTHESIA: Sedation
ESTIMATED BLOOD LOSS: None
FINDINGS:
1. Two glass shards within the rectum, removed successfully with snares
2. No evident/visible lacerations to the anus or rectum; small blood clot within the rectum
SPECIMENS:
1. Two glass shards
DRAINS: None
COMPLICATIONS: None
INDICATIONS: The patient is a 65-year-old male who has a long history of rectal foreign body insertions for possible suicide attempts. The foreign bodies are usually metal shards or razor blades. He presented to the ED after inserting 2 glass
shards that he found on the sidewalk. He states that there was severe pain after inserting them. He tried to remove them but was unable to reach them. In the ED an x-ray showed a radiopaque foreign body in the distal rectum. Therefore, the
patient was recommended to have surgery. I explained that I would perform the procedure in the operating room and first attempt to remove the objects with flexible sigmoidoscopy. If unsuccessful, I would transition to an exam under anesthesia. I
explained that due to possible injuries suffered during placement, he may require surgery involving laparoscopy versus laparotomy, possible bowel resection and possible ostomy. I explained the risks, benefits and alternatives. Risks described
included, but not limited to bleeding, perforation, inability to remove the object via sigmoidoscopy, infection, urinary retention, damage to nearby structures, risks associated with ostomy creation and anesthetic risks. The patient understood and
agreed to proceed. The consent was signed and placed in the chart.
PROCEDURE IN DETAIL: The patient was taken to the operating room. Sequential compression devices were placed bilaterally. The patient was placed on the operating table in supine position. Sedation was commenced without complication. The patient
was placed in lithotomy position with arms secured to the arm boards and pressure points padded. A time-out was performed verifying the correct patient, procedure, operative site, positioning, and special equipment.
The lubricated flexible sigmoidoscopy was inserted transanally and the rectum was insufflated. The sigmoidoscope was advanced carefully under direct visualization. I identified 2 foreign bodies in the mid to proximal rectum. They both appeared to
be glass shards. The first was narrow. I was able to use a snare to grasp it and remove it under direct visualization without any additional injury to the rectum or anus. The other glass shard appeared wide. I placed a foreign body retrieval
blanca on the end of the sigmoidoscope and readvanced it to the mid-rectum. I attempted to grab the second shard with an alligator clamp and a Woodson-tipped grasper, but was unsuccessful. I upsized to a 3 cm snare and was able to grasp the piece
with the snare. As I withdrew, the foreign body blanca successfully inverted and covered the glass shard as I removed it, preventing any additional injury to the rectum or anus. I inserted the sigmoidoscope and advanced up to the distal transverse
colon. I slowly withdrew, looking for any other foreign bodies or injury. I confirmed no other foreign bodies. There were no obvious lacerations or injuries to the mucosa. There were a few small nuggets of solid stool, but otherwise the mucosa
was well-visualized, so I would deem this an adequate prep. The rectum and anus was closely visualized on withdrawal and again, I confirmed no obvious lacerations or injuries. There was a small hematoma within the distal rectum, but that was it.
The sigmoidoscope was removed. The procedure was complete. All needle, sponge and instrument counts were correct. The patient tolerated the procedure well and was transferred to the recovery room in stable condition.
DICTATED BY: Chad Molina MD
[2025-07-07] MEDS: LEXAPRO 20 MG PO (07:44)
[2025-07-07] MEDS: CARDIZEM CD 120 MG PO (07:44)
[2025-07-07] MEDS: VIBRAMYCIN 100 MG PO ×2 (09:26→20:02)
[2025-07-07] MEDS: NICORETTE 4 MG PO ×3 (09:27→17:35)
--- NOTE | 2025-07-07 09:32 | W.PN.CRS1 ---
Today's Communication / Plan
-
No further surgery
Sign off
Assessment/Plan
-
Postop day 0 foreign body extraction from rectum
Vitals normal
WBC 7.9, hemoglobin 11.4
- On a regular diet
- No plans for further surgery
- Medical care per primary team
- Colorectal surgery will sign off. Please contact if any further issues arise.
Subjective Data
Procedure
07/07/2025-foreign body obstruction from rectum
Subjective Data
Date of Service: July 07, 2025
Postop day 0 from a foreign body extraction. Patient states he had some pain but it is controlled with medication. Denies gas or bowel movements yet. Denies bleeding.
Objective Data
-
Vital Signs
Temp Pulse Resp BP Pulse Ox
98.0 F 86 14 104/72 96
07/07/25 08:03 07/07/25 08:03 07/07/25 08:03 07/07/25 08:03 07/07/25 08:03
Intake & Output
07/06/25 07/07/25 07/08/25
06:59 06:59 06:59
Intake Total 240 / 240
Balance 240 / 240
Intake:
Oral fluids 240 / 240
Lab Results
07/07/25 05:47
07/07/25 05:47
Physical Exam
-
General: No Acute Distress and AOx3
Abdomen: Soft, Non Distended and Non Tender
--- NOTE | 2025-07-07 09:58 | W.PN.HOSP.TC ---
Today's Communication/Plan
-
See PN
Assessment / Plan
Assessment / Plan
65yo M with bipolar, HTN, HLD, gerd, Hx of self harm came with piece of broken glass in his rectum that he had insertdto illicitself harm, hoping that it will lacerate artery, so he can . Had sygmoidoscopy with foreign body removal by
[facility] on 07/06/25.
A/P:
#Rectal foreign body
removed by COlorectal
pain mgmt
#Bipolar
#Possible suicide attempt
1:1
Suicide precautions
cont home meds
Psych consult
CM consult to crisis
#COPD in exacerbation
2 days of worsening cough
bronchodilators and doxy for antiinflammatory properties
With no hypoxia - no direct indication for immediate steroids, will follow for improvement
#nicotine dependency
counselled on cessation
Nicorette
#GERD
#HLD
#CAD, stable
#SVT, s/p ablation
cont home meds
#Mild chronic anemia
oupatient f/u
DVT ppx on lovenox
full code
I have spent at least 55min reviewing chart, test results and providing direct patient care
Anticipated Discharge: Within 24 hours
Subjective/Interval History
-
Date of Service: July 07, 2025
Objective Data
-
Labs:
Laboratory Results
07/06/25 07/07/25
22:48 05:47
WBC 7.2 7.9
Hgb 11.6 L 11.4 L
Hct 32.8 L 33.1 L
Plt Count 202 206
Sodium 142 141
Potassium 4.2 4.3
Chloride 111 H 111 H
Carbon Dioxide 24 24
BUN 16 16
Creatinine 0.8 0.8
Glucose 109 H 105 H
Calcium 9.3 9.0
Vital Signs:
Vital Signs
Temp Pulse Resp BP Pulse Ox
98.0 F 86 14 104/72 96
07/07/25 08:03 07/07/25 08:03 07/07/25 08:03 07/07/25 08:03 07/07/25 08:03
I&O
07/06/25 07/07/25 07/08/25
06:59 06:59 06:59
Intake Total 240 / 240
Balance 240 / 240
Review of Systems
-
History Source: Patient
All other systems: Reviewed and negative
Physical Exam
-
General: No Apparent Distress
HEENT: Normocephalic
Respiratory: Wheezes
Cardiac: Regular Rhythm
GI: Soft, Nontender and Nondistended
Skin: Warm
Neuro: Awake, Alert, Oriented and AO x 3
Psych: Calm
[2025-07-07] MEDS: DUONEB 3 ML INH ×3 (10:56→19:45)
--- NOTE | 2025-07-07 13:10 | CM ---
Addendum entered by Pat Blackburn RN 07/07/25 14:01:
Patient's address is: [facility] on [address] [place] [address]
Original Note:
Reviewed the chart notes and spoke with the patient at the bedside. Patient currently with 1:1 at bedside. Consult for suicide risk received. Psychiatrist saw patient today. Per patient, he resides in [place] [facility] in [place] in a three
story building with two steps to enter. The patient's bedroom is located on the third level. Per patient, no DME/VN/SNF in the past. CM continues to be available to patient/family and is monitoring medical plan for needs at discharge.
Plan: [place] [facility] when medically stable.
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
[2025-07-07] MEDS: LIPITOR 20 MG PO (17:03)
[2025-07-07] MEDS: LOVENOX 40 MG SC (17:03)
[2025-07-07] MEDS: ZYPREXA 20 MG PO (22:08)
[2025-07-08] MEDS: DILAUDID 0.5 MG IV ×2 (04:34→08:38)
[2025-07-08] MEDS: NICORETTE 4 MG PO ×2 (04:34→08:36)
[2025-07-08] MEDS: DUONEB 3 ML INH (07:30)
--- NOTE | 2025-07-08 08:32 | W.PN.HOSP.TC ---
Today's Communication/Plan
-
dc
Assessment / Plan
Assessment / Plan
65yo M with bipolar, HTN, HLD, gerd, Hx of self harm came with piece of broken glass in his rectum that he had insertdto illicitself harm, hoping that it will lacerate artery, so he can . Had sigmoidoscopy with foreign body removal by
[facility] on 07/06/25. As per assessment from psychiatry patient can return to his halfway and there is no concerns for current suicidal ideations. However due to the possibility that patient might manipulate to stay in the hospital - 1:1
recommended to be continued until d/c. Wheezing well resolved, oxygenation normal. Patient is medically stable for d/c
A/P:
#Rectal foreign body
removed by COlorectal
pain mgmt
#Bipolar
#Possible suicide attempt
1:1
Suicide precautions
cont home meds
Psych consult
CM consult to crisis
#COPD in exacerbation
2 days of worsening cough
bronchodilators and doxy for antiinflammatory properties
With no hypoxia - no direct indication for immediate steroids, will follow for improvement
#nicotine dependency
counselled on cessation
Nicorette
#GERD
#HLD
#CAD, stable
#SVT, s/p ablation
cont home meds
#Mild chronic anemia
oupatient f/u
DVT ppx on lovenox
full code
I have spent at least 36min reviewing chart, test results and providing direct patient care
Anticipated Discharge: Today
Subjective/Interval History
-
Date of Service: July 08, 2025
Objective Data
-
Vital Signs:
Vital Signs
Temp Pulse Resp BP Pulse Ox
97.9 F 77 16 112/73 99
07/07/25 22:15 07/08/25 07:34 07/08/25 07:34 07/07/25 22:15 07/08/25 07:34
I&O
07/07/25 07/08/25 07/09/25
06:59 06:59 06:59
Intake Total 240 / 240 1180 / 1180
Balance 240 / 240 1180 / 1180
Review of Systems
-
History Source: Patient
All other systems: Reviewed and negative
Abdomen/GI: Reports Other (rectal pain)
Physical Exam
-
General: No Apparent Distress
HEENT: Normocephalic
Respiratory: Clear to Auscultation
Cardiac: Regular Rhythm
GI: Soft, Nontender and Nondistended
Musculoskeletal: No Clubbing, No Cyanosis and No Edema
Psych: Calm; Negative Suicidal
[2025-07-08] MEDS: LEXAPRO 20 MG PO (08:34)
[2025-07-08] MEDS: VIBRAMYCIN 100 MG PO (08:34)
[2025-07-08] MEDS: CARDIZEM CD 120 MG PO (08:34)
--- NOTE | 2025-07-08 08:39 | W.DCSUMMARY ---
Discharge Summary
Discharge Data
Date of Admission: 07/07/25
Date of Discharge: 07/08/25
-
Pending Results: No
Hospital Course
65yo M with bipolar, HTN, HLD, gerd, Hx of self harm came with piece of broken glass in his rectum that he had insertdto illicitself harm, hoping that it will lacerate artery, so he can . Had sigmoidoscopy with foreign body removal by
[facility] on 07/06/25. As per assessment from psychiatry patient can return to his [facility] and there is no concerns for current suicidal ideations on discharge day. However due to the possibility that patient might manipulate to stay in the
hospital - 1:1 recommended to be continued until d/c. Wheezing well resolved, oxygenation normal. Patient is medically stable for d/c
I have spent at least 36min reviewing chart, test results and providing direct patient care
Patient was managed for:
#Rectal foreign body
#Bipolar
#Possible suicide attempt
#COPD in exacerbation
#nicotine dependency
#GERD
#HLD
#CAD, stable
#SVT, s/p ablation
#Mild chronic anemia
Discharge Plan
-
Patient Disposition: Other
Discharge Diagnosis/Procedures: rectal foreign body
Diet: Regular
Referrals:
UNKNOWN - PT DOES,NOT KNOW [Family Provider]
Prescriptions:
New
doxycycline hyclate 100 mg Capsule
100 mg PO Q12 Qty: 8 0RF
Spiriva Respimat 1.25 mcg/actuation mist
2 puff inhalation DAILY Qty: 4 0RF
albuterol sulfate [Ventolin HFA] 90 mcg/actuation HFA aerosol inhaler
2 puff inhalation Q6H PRN (Reason: shortness of breath or wheezing) Qty: 6.7 0RF
Continued
diltiazem HCl [Cartia XT] 120 MG capsule,extended release 24hr
120 mg PO DAILY
escitalopram oxalate [Lexapro] 20 mg Tablet
20 mg PO DAILY
atorvastatin 20 mg Tablet
20 mg PO QPM
pantoprazole 40 mg Tablet,Delayed Release (Dr/Ec)
40 mg PO DAILY Qty: 7 0RF
olanzapine [Zyprexa] 20 mg Tablet
20 mg PO HS Qty: 0 0RF
ibuprofen 400 mg tablet
400 mg PO Q6H PRN (Reason: Pain) Qty: 12 0RF
Discharge Orders:
Discharge Patient (As Directed); Ordered 07/08/25
Ordered By: Wesley Pennington
Discharge Date and Time
Print Language: FRISIAN
[2025-07-08 08:44] VITALS: BP 97/69
--- NOTE | 2025-07-08 10:59 | CM ---
Patient has been medically cleared for discharge back to [facility] at [address] [place] [address]. Patient does not require any additional skilled services. This CM spoke with Director Fredis Shirley who will take report at
[phone]. Their fax is broken and he asked that discharge paperwork be sent with patient. [facility] does not have transport for patient. Lyft vehicle will be supplied.
--- NOTE | 2025-07-08 12:33 | CM ---
Lyft transport arranged for [facility] to [facility] [place] [address] [place] [place] [address].
Eulalio in an black [employer] will arrive in 19 min to transport.
Safety Observer updated.
--- NOTE | 2025-07-08 14:10 | W.PN.UPDATE ---
Update Note
Progress Note Update
pt seen this am to assess for suitability for discharge. doing well, passing gas, will try for bowel movement. no thoughts of self-harm/insertion at this time. has had discussion with transplant case manager, has plan for alternative living situation if
necessary once he returns home. discussed naltrexone, wants to try to help with cutting down on insertions. ok for d/c
[2025-07-08 19:25] LABS: Hepatitis C Antibody Negative (Negative)
== END 2025-07-08 12:10 | disposition home or self-care (01) | DRG 394 ==
LOC: 2 NORTH 07:23
PROVIDERS: ADMITTING PHYSICIAN Internal Medicine; ATTENDING PHYSICIAN Internal Medicine; CONSULT PHYSICIAN Psychiatry & Neurology Psychiatry; CONSULT PHYSICIAN Surgery; EMERGENCY PHYSICIAN Emergency Medicine
PROC: 0DCP8ZZ Extirpation of Matter from Rectum, Via Natural or Artificial Opening Endoscopic (ICD-10-PCS; 2025-07-07)
DX: T18.5XXA Foreign body in anus and rectum, initial encounter (principal); I47.10 Supraventricular tachycardia, unspecified; J44.1 Chronic obstructive pulmonary disease with (acute) exacerbation; Z59.00 Homelessness unspecified; W44.9XXA Unspecified foreign body entering into or through a natural orifice, initial encounter; F31.9 Bipolar disorder, unspecified; K21.9 Gastro-esophageal reflux disease without esophagitis; E78.5 Hyperlipidemia, unspecified; I25.10 Atherosclerotic heart disease of native coronary artery without angina pectoris; D64.9 Anemia, unspecified; I10 Essential (primary) hypertension; Z79.01 Long term (current) use of anticoagulants; Z86.718 Personal history of other venous thrombosis and embolism; Z91.51 Personal history of suicidal behavior; F17.210 Nicotine dependence, cigarettes, uncomplicated; Z88.5 Allergy status to narcotic agent; Z91.52 Personal history of nonsuicidal self-harm; F29 Unspecified psychosis not due to a substance or known physiological condition; F41.9 Anxiety disorder, unspecified; F43.10 Post-traumatic stress disorder, unspecified; F60.3 Borderline personality disorder; Z79.899 Other long term (current) drug therapy
CPT/HCPCS: 71045; 74018; 80048; 85025; 85027; 86803; 86850; 86900; 86901; 87070; 87147; 88300; 94640; 96374; 99291